=== PATIENT | male | born 1980 | race Caucasian/White ===

== ENCOUNTER 2016-10-11 03:52 | Emergency (ER) | payer OTHER ==
[~2016-10-11] VITALS: Ht 188 cm; Wt 126.0 kg
[2016-10-11] MEDS ORDERED: TETANUS/DIPHTHERIA TOXOID ADULT 0.5 ML VIAL IM ONE (04:15)
[2016-10-11] MEDS ORDERED: LIDOCAINE 1%/EPINEPHrine 1:100,000 SOLN 20 ML VIAL INFIL ONE (04:15)
--- NOTE | 2016-10-11 04:36 | PD ---
HPI Chief Complaint: Laceration/Skin Injury Time Seen by Provider: 04:31 Travel History International Travel<30 days: No Contact w/Intl Traveler<30days: No Traveled to known affect area: No History of Present Illness HPI 35-year-old white male presents to emergency department with a scalp laceration. This occurred sometime around 7:30 last evening. He states that he had leaned over the pool deck striking his head on a metal post. This caused a laceration. He went to the emergency department at [facility] . He states that he waited 4 hours in the waiting room and was not seen. The patient opted to go home. He states that he was hoping to take a shower and let it heal naturally. After a shower he realized the laceration was 2 large to allow to close secondarily. He presents to [facility] for evaluation. He denies any syncope. No neck or back pain. No numbness, tingling or weakness. PFSH Past Medical History Medical History: Denies Significant Hx Tetanus Vaccination: Unknown Past Surgical History Surgical History: No Previous Surgery Social History Alcohol Use: Yes (socially) Tobacco Use: Yes Substance Use: No Allergies-Medications (Allergen,Severity, Reaction): Coded Allergies: Penicillin (Verified Allergy, Unknown, 10/11/16) Reported Meds & Prescriptions Reported Meds & Active Scripts Active No Active Prescriptions or Reported Medications Review of Systems Except as stated in HPI: all other systems reviewed are Neg Physical Exam Narrative GENERAL: Well-developed, well-nourished in no apparent distress. Nontoxic appearing. HEAD: Normocephalic, patient has a large scalp laceration. Scalp laceration measures 6 cm. It is irregular with a large jagged flap. There is hair under approximately 30% of the flap elevating it up. The distal tip of the flap appears somewhat dusky. EYES: Pupils equal round and reactive. Extraocular motions intact. No scleral icterus. No injection or drainage. ENT: Nose clear. Throat without erythema, tonsillar hypertrophy or exudate. Uvula midline. Airway patent. NECK: Trachea midline. Supple, nontender, moves head freely. No central bony tenderness or spasm. CARDIOVASCULAR: Regular rate and rhythm without murmurs, gallops, or rubs. RESPIRATORY: Clear to auscultation. Breath sounds equal bilaterally. No wheezes , rales, or rhonchi. GASTROINTESTINAL: Abdomen soft, non-tender, nondistended. No hepato-splenomegaly , or palpable masses. No guarding. EXTREMITIES: No clubbing, cyanosis, or edema. No joint tenderness. BACK: Nontender without deformity. No flank tenderness. NEUROLOGICAL: Awake, alert and oriented x 3 .Cranial nerves grossly intact. Motor and sensory grossly within normal limits. Normal speech. Data Data Orders Lidocai-Epi 1%-1:100,000 Inj (Xylocaine- (10/11/16 04:15) Tetanus/Diphtheria Tox Adult (Tetanus/Di (10/11/16 04:15) MDM Medical Decision Making Medical Screen Exam Complete: Yes Emergency Medical Condition: Yes Medical Record Reviewed: Yes Differential Diagnosis MDM: High Differential diagnoses: Fracture, sprain, strain, dislocation, contusion, neurovascular injury, laceration Narrative Course Patient's laceration is closed with clarita. Tetanus status updated. Procedures Procedure Narrative LACERATION LOCATION: Right parietal scalp LENGTH: 6 cm flap NUMBER OF STITCHES/CLARITA: 16 REPAIR: The area of the laceration was prepped with Betadine and sterilely draped. The laceration was infiltrated with 1% lidocaine with epinephrine. The wound was copiously irrigated and explored without evidence of foreign body , tendon injury or neurovascular injury. The wound was closed using clarita. This was a simple single layer repair. A sterile dressing was applied. The patient was advised to keep the dressing clean and dry. Patient tolerated the procedure well. Diagnosis Primary Impression: Scalp laceration Qualified Code: S01.01XA - Scalp laceration, initial encounter Patient Instructions: General Instructions Additional Instructions: Rest. Elevation. Tylenol and Advil for pain. Daily wound care with soap, water, Neosporin. Sutures out in 10 days. Return to the ER if any problems. Med/Other Pt SpecificInfo: No Meds Exist/No RX given Scripts No Active Prescriptions or Reported Meds Disposition: DISCHARGE HOME Condition: Stable Jeffry Bowser Oct 11, 2016 04:36
== END 2016-10-11 05:12 | disposition home or self-care (01) ==
LOC: NEPB 03:52
DX: S01.01XA Laceration without foreign body of scalp, initial encounter (principal); Z23 Encounter for immunization; Z72.0 Tobacco use; W22.09XA Striking against other stationary object, initial encounter
CPT/HCPCS: 12002; 90471; 90714